=== PATIENT | male | born 1995 | race Caucasian/White ===

== ENCOUNTER 2019-07-21 22:29 | Emergency (ER) | payer SELFPAY ==
[~2019-07-21] VITALS: Ht 190.5 cm; Wt 106.0 kg
[2019-07-21 22:46] VITALS: BP 133/76
[2019-07-21] MEDS ORDERED: NAPR-514 PO (23:37)
--- NOTE | 2019-07-21 23:37 | PHYS DOC ---
Past Medical History Past Medical History: No Pertinent History Smoking Status: Current Every Day Smoker Alcohol Use: Occasionally Social History Narrative: MARIJUANA USE DAILY Adult General Chief Complaint Chief Complaint: DENTAL PROBLEM HPI HPI Patient is a 24 year old male who presents to the emergency department with complaints of bilateral lower front teeth hurting for the last 3 days. Patient denies any injury, gingival erythema, gingival edema, or discoloration of teeth. He denies any fever, cough, sore throat, body aches, fatigue, shortness of breath, wheezing, nausea, vomiting, diarrhea, abdominal pain. Patient states that he last saw dentist about 6 months ago. He currently rates the discomfort a 10 out of 10 on the pain scale, patient denies any alleviating factors he states that he has tried taking extra strength Tylenol with no relief. Patient denies any use of tobacco products, he smokes marijuana a few times a week. Patient states that in the past the dentist has told him that he must (at night but he does not wear any type of dental guard to prevent him from grinding his teeth. Review of Systems Review of Systems All other systems were reviewed and found to be within normal limits, except as documented in this note. Physical Exam Physical Exam Constitutional: Well developed, well nourished, no acute distress, non-toxic appearance. [] HENT: Normocephalic, atraumatic, bilateral external ears normal, oropharynx moist, no oral exudates, nose normal; no obvious dental decay or gingival erythema/edema, lower teeth are not loose, no discoloration of teeth noted. [] Eyes: PERRLA, EOMI, conjunctiva normal, no discharge. [] Neck: Normal range of motion, no tenderness, supple, no stridor. [] Cardiovascular:Heart rate regular rhythm Lungs & Thorax: Bilateral breath sounds clear to auscultation, Respirations even and unlabored, no retractions, no respiratory distress [] Skin: Warm, dry, no erythema, no rash. [] Extremities: No cyanosis, ROM intact, no edema. [] Neurologic: Alert and oriented X 3, no focal deficits noted. [] Psychologic: Affect normal, judgement normal, mood normal. [] Current Patient Data Vital Signs Vital Signs Date Time Temp Pulse Resp B/P (MAP) Pulse Ox O2 Delivery O2 Flow Rate FiO2 07/21/19 22:46 98.3 86 16 133/76 (95) 98 Room Air 98.3 EKG EKG [] Radiology/Procedures Radiology/Procedures [] Course & Med Decision Making Course & Med Decision Making Pertinent Labs and Imaging studies reviewed. (See chart for details) [] Dragon Disclaimer Dragon Disclaimer This electronic medical record was generated, in whole or in part, using a voice recognition dictation system. Departure Departure Impression: Primary Impression: Pain, dental Disposition: HOME, SELF-CARE Condition: STABLE Referrals: NO PCP (PCP) Patient Instructions: Dental Pain, [id number] Additional Instructions: Fill prescription(s) and use as directed. Follow up with dentist using the referral list provided. Return to the ER if symptoms worsen. Scripts Naproxen (NAPROXEN) 500 Mg Tablet 1 TAB PO BID PRN for PAIN for 10 Days, #20 TAB 0 Refills Prov: ELIZABETH KABA APRN 07/21/19 ELIZABETH KABA APRN Jul 21, 2019 23:37
[2019-07-21] MEDS ORDERED: HYDROcodone/APAP 5/325MG 1 TAB TABLET PO ONE (23:45)
[2019-07-22] MEDS ORDERED: HYDROcodone/APAP 5/325MG 1 TAB TABLET ONE (00:08)
== END 2019-07-22 00:10 | disposition home or self-care (01) ==
LOC: ER 22:29
DX: K08.89 Other specified disorders of teeth and supporting structures (principal); F12.90 Cannabis use, unspecified, uncomplicated; F17.200 Nicotine dependence, unspecified, uncomplicated
CPT/HCPCS: 99282; 99283